=== PATIENT | male | born 1940 | race Caucasian/White ===

== ENCOUNTER 2023-06-06 10:34 | Emergency (ER) | payer OTHER, SELFPAY ==
[2023-06-06] VITALS (16 sets, daily range): BP systolic 103–207; BP diastolic 40–98; PULSE 59–106; RESP 13–33; TEMP 37.4; O2SAT 96–97
--- NOTE | 2023-06-06 10:30 | RT.EKG_ITS ---
APPROVED REPORT Exam: Resting ECG Reason for Exam: CHest Pain Patient Location: E HR:93 bpm ECG Measurements Heart Rate 93 AXIS MT 132 P 244 QRSd 165 QRS -114 QT 421 T 48 QTc 525 Conclusion Ectopic atrial rhythm...abnormal P axis, normal rate Atrial premature complex...SV complex w/ short R-R interval Right bundle branch block...QRSd>120, terminal axis(90,270) ST elevation secondary to IVCD...Multiple VCG criteria Normal sinus rhythm with frequent PVCs at a rate of 93. Prolonged QTc at [address] segment de pressions inferiorly similar to prior. Left bundle branch block not meeting Sgarbossa criteria for i schemia. Appears similar to prior in [facility] EMR.
--- NOTE | 2023-06-06 10:36 | ED.GENADUL_ITS ---
HPI General Date/Time Provider Initiated Documentation: 06/06/23 10:36. HPI Narrative: MDM This is a mildly hypertensive but not tachycardic and normothermic 83-year-old male with heart failure with reduced ejection fraction status post TAVR with cardiomyopathy and an EF with dizziness concerning for symptomatic PVCs versus transient heart block. Patient reportedly had bradycardia at the cancer clinic. He denies palpitations and does not appear volume overloaded and has not had any orthopnea nor paroxysmal nocturnal dyspnea. As resulted in the absence of JVD and did not obtain a proBNP. He is not having chest pain however will send a troponin to assess for myocardial injury. Will assess labs to determine whether or not he has hypomagnesemia or hypokalemia though my suspicion is low as he has not been nauseous nor vomiting. He has not yet taken his home metoprolol. There has been some question in the EMR at [facility] that he may not have been adherent with his home medications. Will redosed his metoprolol now. Patient is hemodynamically stable so no indication for cardioversion. No heart blocks to suggest benefit from transcutaneous pacing. Electrophysiology from [facility] assessed patient last week. They noted that he has not had symptomatic bradycardia. Plan is to obtain an echocardiogram and 3 months. 11 AM CBC lacks anemia thrombocytopenia and leukocytosis. 11:28 AM Troponin negative. Basic metabolic panel showing CKD. No prior for comparison. Mild hyperglycemia and mild anion gap but normal bicarbonate??not consistent with DKA. Normal magnesium. Will reach out to the patient's spool sorter Dr. Hannah at [facility]. 11:35 AM I spoke with Dr. Hannah at [facility]. He reviewed the patient's ECG and felt that in the absence of syncope volume overload electrolyte abnormalities that the patient was appropriate for an empiric trial of discharge with expectant outpatient management. I will have the patient follow-up with his primary care provider to ensure that he has a repeat echocardiogram performed within 3 months. It seems likely that patient's radial pulse rate might have been in the 20-30s given his burden of PVCs. He is certainly perfusing well and his ECG appears similar to prior. Given that he is not symptomatic I do not feel that he require hospitalization at this junction. Chronic conditions affecting the care of the patient: Heart failure History obtained from an outside historian: [facility] External record review: [facility] EMR [Diagnostic interpretations performed by me: Per my independent interpretation chest x-ray shows: No acute cardiopulmonary process Per my independent interpretation EKG shows: Normal sinus rhythm with frequent PVCs at a rate of 93. Prolonged QTc at [address] segment depressions inferiorly similar to prior. Left bundle branch block not meeting Sgarbossa criteria for ischemia. Appears similar to prior in [facility] EMR Medications: Metoprolol Social determinants of health affecting disposition: N/A Management discussed with: Cardiology at [facility] Treatment/interventions considered: hospitalization but deferred Response to therapies provided: N/A HPI This is an 83-year-old male with a history of TAVR with decreased EF left bundle branch block now in the emergency department in setting of reported bradycardia from [facility]. Patient reports that for the past year he has had intermittent dizziness when he stands up to ambulate. He was receiving leuproelin infusion at the cancer center. He reportedly had a pulse of 25-32 when taken radially. He had a normal blood pressure. Patient denies complaints. He has had no syncope. He said no lower extremity swelling. He has had no unintentional weight gain.No palpitations. No paroxysmal dyspnea nocturnal. Exam General: Well-appearing in no acute distress speaking in complete sentences. Head: Normocephalic, atraumatic. Eye: Extraocular eye movements intact. No conjunctival injection. No scleral icterus. Ear, nose, mouth, throat: Grossly normal inspection. Normal voice, handling secretions normally. Neck: Trachea midline. Cardiovascular: Well-perfused distal extremities. Irregularly irregular rhythm Respiratory: Nonlabored respiration. Clear lungs bilaterally Gastrointestinal: Nondistended abdomen. Musculoskeletal: No significant lower extremity pitting edema. Moving all 4 extremities spontaneously. Skin: Normal for age and race, grossly normal temperature and turgor. No acute rash. Neurologic: Alert and appropriate, no apparent acute deficits. Psychiatric: Mood and manner are appropriate. Grooming and personal hygiene are appropriate. Related Data Home Medications Medication Instructions Recorded Confirmed aspirin 81 mg chewable tablet 81 mg PO DAILY 06/06/23 06/06/23 atorvastatin 80 mg tablet 80 mg PO DAILY 06/06/23 06/06/23 bicalutamide 50 mg tablet 50 mg PO DAILY 06/06/23 06/06/23 furosemide 20 mg tablet 20 mg PO DAILY 06/06/23 06/06/23 lisinopril 2.5 mg tablet 2.5 mg PO DAILY 06/06/23 06/06/23 metoprolol succinate 50 mg 50 mg PO DAILY 06/06/23 06/06/23 tablet,extended release 24 hr spironolactone 25 mg tablet 25 mg PO DAILY 06/06/23 06/06/23 Allergies Allergy/AdvReac Type Severity Reaction Status Date / Time No Known Allergies Allergy Unverified 06/06/23 10:43 PFSH All Active Problems (Updated 06/06/23 @ 20:57 by Jose J Austin MD) Frequent PVCs (Acute) Social History Smoking/Tobacco Use Status: Never Smoking risk assessment performed?: Yes Alcohol Intake: current Alcohol Intake frequency: holidays/special occasions only Substance use type: does not use Housing: house Do you feel safe at home: Yes Do you feel safe in your relationship?: Yes Medical Decision Making Quality:SDOH Health Related Social Needs: No Data to Display Discharge Plan Disposition Patient Disposition: Home Discharge Details Clinical Impression: Frequent PVCs Primary Care Provider: Unknown,Unknown ED Provider: Jose J Austin Home Meds and New Rx's Prescriptions: Continued bicalutamide 50 mg tablet 50 mg PO DAILY Patient Comments: START TAKING ONE TABLET BY MOUTH TODAY, STOP WHEN RADIATION IS COMPLETE. atorvastatin 80 mg tablet 80 mg PO DAILY Patient Comments: TAKE ONE TABLET BY MOUTH EVERY EVENING metoprolol succinate 50 mg tablet extended release 24 hr 50 mg PO DAILY Patient Comments: TAKE ONE TABLET BY MOUTH EVERY DAY spironolactone 25 mg tablet 25 mg PO DAILY Patient Comments: TAKE 1/2 TABLET BY MOUTH DAILY aspirin 81 mg tablet,chewable 81 mg PO DAILY Patient Comments: CHEW ONE TABLET BY MOUTH EVERY DAY furosemide 20 mg tablet 20 mg PO DAILY Patient Comments: TAKE ONE TABLET BY MOUTH EVERY DAY lisinopril 2.5 mg tablet 2.5 mg PO DAILY Patient Comments: TAKE ONE TABLET BY MOUTH EVERY DAY Discharge Instructions Additional Instructions: You were seen in the emergency department for your reported low heart rate. You r ECG appears similar to prior. Please continue taking your medications as previously scheduled. Please follow-up with your primary care provider as you will need an echocardiogram which is an ultrasound of your heart within the next 3 months. Please return to the emergency department if you develop lightheadedness pass out or develop swelling in her legs or any shortness of breath. Discharge Data Discharge Date/Time-TO BE ENTERED AT DEPARTURE: 06/06/23 11:59
[2023-06-06 10:58] LABS: Abs Immature Grans 0.02 10^3/uL (0.0-0.06); Absolute Basophil Count 0.06 10^3/uL (0.0-0.2); Absolute Eosinophil Count 0.12 10^3/uL (0.0-0.7); Absolute Lymphocyte Count 1.04 10^3/uL (1.2-3.4); Absolute Neutrophil Count 6.89 10^3/uL (1.2-6.7); Basophils % 0.7; Eosinophils % 1.4; HCT 47.8 % (40.0-50.0); HGB 15.8 g/dL (13.5-17.5); Immature Grans % 0.2; Lymphocytes % 11.8; MCH 30.4 pg (27.0-33.0); MCHC 33.1 % (32.0-36.0); MCV 92 fL (80-95); MPV 9.3 fL (8.0-11.0); Monocytes % 7.9; Platelet Count 201 10^3/uL (130-400); RBC 5.19 10^6/uL (4.36-5.78); RDW-SD 44.4 fL; WBC 8.83 10^3/uL (4.4-10.8)
--- NOTE | 2023-06-06 11:02 | DI.RAD_ITS ---
Exam(s) XR PORTABLE CHEST AP EXAM: XR PORTABLE CHEST AP CLINICAL HISTORY: Dizziness TECHNIQUE: 2D digital imaging was performed of the chest. One image was obtained. An AP view was ob tained. COMPARISON: No exams were available for comparison FINDINGS: MEDIASTINUM: Normal. HEART: Normal. PULMONARY VASCULATURE: Normal. LUNGS: Clear. PLEURAL SPACE: No pleural effusion or pneumothorax. BONE:Within normal limits for the patient's age. Sternal wires are in place. OTHER FINDINGS:Normal. IMPRESSION: No acute pulmonary findings. DATA REPOSITORY: RADIATION DOSE DELIVERED:
[2023-06-06] MEDS: Metoprolol CR 50 MG TABCR PO (11:10)
[2023-06-06 11:16] LABS: Anion Gap 11.6 mmol/L (3-11); BUN 33 mg/dL (7-18); CO2 24.4 mmol/L (21.0-32.0); CREATININE 1.4 mg/dL (0.70-1.30); Calcium 9.8 mg/dL (8.5-10.1); Chloride 103 mmol/L (98-107); Estimated GFR 50.49 (mL/min/1.73m2); Glucose 122 mg/dL (74-106); Magnesium 2.2 mg/dL (1.8-2.4); Potassium 4.1 mmol/L (3.5-5.1); Sodium 139 mmol/L (136-145); Troponin I < 50 ng/L (<or=60)
== END 2023-06-06 11:59 | disposition home or self-care (01) ==
PROVIDERS: Emergency Provider Emergency Medicine
DX: I49.3 Ventricular premature depolarization (principal); I44.7 Left bundle-branch block, unspecified; Z79.82 Long term (current) use of aspirin; R42 Dizziness and giddiness
CPT/HCPCS: 80048; 93005; 99283; 71045; 83735; 84484; 85025; 93010; 99284

== ENCOUNTER 2023-12-19 13:15 | Outpatient (CLI) | payer MEDICARE, SELFPAY ==
[2023-12-19 10:54] LABS: Abs Immature Grans 0.01 10^3/uL (0.0-0.06); Absolute Basophil Count 0.03 10^3/uL (0.0-0.2); Absolute Eosinophil Count 0.11 10^3/uL (0.0-0.7); Absolute Lymphocyte Count 0.37 10^3/uL (1.2-3.4); Absolute Monocyte Count 0.47 10^3/uL (0.1-0.8); Absolute Neutrophil Count 4.16 10^3/uL (1.2-6.7); Basophils % 0.6 %; Eosinophils % 2.1 %; HCT 40.6 % (40.0-50.0); HGB 13.7 g/dL (13.5-17.5); Immature Grans % 0.2 %; Lymphocytes % 7.2 %; MCH 32.8 pg (27.0-33.0); MCHC 33.7 % (32.0-36.0); MCV 97 fL (80-95); Monocytes % 9.1 %; Neutrophils % 80.8 %; Platelet Count 150 10^3/uL (130-400); RBC 4.18 10^6/uL (4.36-5.78); RDW 12.8 % (11.8-14.1); RDW-SD 45.7 fL; WBC 5.15 10^3/uL (4.4-10.8)
[2023-12-19 11:36] LABS: ALT 28 U/L (16-63); AST 16 U/L (15-37); Albumin 3.7 g/dL (3.4-5.0); Alkaline Phosphatase 83 U/L (46-116); Anion Gap 9.7 mmol/L (3-11); BUN 23 mg/dL (7-18); CO2 23.3 mmol/L (21.0-32.0); CREATININE 1.3 mg/dL (0.70-1.30); Calcium 8.9 mg/dL (8.5-10.1); Chloride 108 mmol/L (98-107); Estimated GFR 55.19 (mL/min/1.73m2); Glucose 116 mg/dL (74-106); Potassium 4.2 mmol/L (3.5-5.1); Sodium 141 mmol/L (136-145)
[2023-12-21 10:04] LABS: PSA, Ultrasensitive 0.04 ng/mL (<= 7.2)
[2023-12-22 17:28] LABS: Testosterone, Total 9.3 ng/dL (240-950)
== END 2023-12-19 13:16 | disposition home or self-care (01) ==
LOC: LBO 13:15
PROVIDERS: Visit Provider Radiology Radiation Oncology
DX: Z79.818 Long term (current) use of other agents affecting estrogen receptors and estrogen levels (principal); C61 Malignant neoplasm of prostate
CPT/HCPCS: 36415; 80053; 84153; 84403; 85025